=== PATIENT | female | born 1975 ===

== ENCOUNTER 2021-05-30 02:59 | Emergency (ER) | payer OTHER ==
[~2021-05-30] VITALS: Ht 167.6 cm; Wt 63.5 kg
[2021-05-30] MEDS ORDERED: PEPCID40 MG PO (06:11)
[2021-05-30] MEDS ORDERED: LEVSIN/SL0.125 MG SL (06:11)
[2021-05-30] MEDS ORDERED: ZOFRAN8 MG PO (06:11)
== END 2021-05-30 06:19 ==
LOC: ER 02:59
DX: R10.9 Unspecified abdominal pain (principal)